=== PATIENT | male | born 1995 ===

== ENCOUNTER 2021-03-01 14:31 | Emergency (ER) | payer OTHER ==
[~2021-03-01] VITALS: Ht 152.4 cm; Wt 74.8 kg
[2021-03-01] MEDS ORDERED: PENICILLIN V P500 MG PO (16:19)
== END 2021-03-01 16:45 | disposition home or self-care (01) ==
LOC: ED 14:31
DX: K08.89 Other specified disorders of teeth and supporting structures (principal)
CPT/HCPCS: 96372; 99282; J1885